=== PATIENT | male | born 1945 | race Caucasian/White ===

== ENCOUNTER → 2024-04-29 09:49 | Outpatient (REF) | payer MEDICARE, OTHER, SELFPAY | LOC: MRI 3T 09:49 | PROVIDERS: ATTENDING PHYSICIAN Specialist | DX: R97.20 Elevated prostate specific antigen [PSA] (principal) | CPT/HCPCS: 72197; A9575 ==

== ENCOUNTER → 2024-08-06 15:41 | Outpatient (REF) | payer MEDICARE, OTHER, SELFPAY | LOC: CLAB 15:41 | PROVIDERS: ATTENDING PHYSICIAN Specialist | DX: R97.20 Elevated prostate specific antigen [PSA] (principal) | CPT/HCPCS: 88305; 88342 ==